=== PATIENT | male | born 1940 | race Caucasian/White ===

== ENCOUNTER 2018-07-08 09:12 | Day surgery (SDC) | payer MEDICARE, BC ==
[~2018-07-08] VITALS: Ht 177.8 cm; Wt 95.3 kg
[~2018-07-08 09:12] MED LIST: ASPI325T8 PO; ATOR20TA58 PO; CARV25TA PO; DORZ10DR7 EACHEYE; HYDR-3164 PO; HYDROmorphone 2 MG/ML VIAL IV PRN; IV RINGERS,LACTATED 1000ML 1,000 ML IV SCH; LIDOCAINE 1% PF 2 ML VIAL. ID PRN; LISI10TA2 PO; MORPHINE SULFATE 2 MG/ML VIAL. IV PRN; MULT-121 PO; OMEG1CAP38 PO; ONDANSETRON PF 4 MG/2 ML VIAL. IV PRN; PROCHLORPERAZINE 10 MG/2 ML VIAL. IV PRN; SILD20TA2 PO; fentaNYL PF VIAL 100 MCG/2 ML VIAL IV PRN
[2018-07-08] MEDS ORDERED: DEXAMETHASONE SOD PHOS 20 MG/5 ML VIAL. ONE (09:26)
[2018-07-08] MEDS ORDERED: fentaNYL PF VIAL 100 MCG/2 ML VIAL ONE (09:26)
[2018-07-08] MEDS ORDERED: ROCURONIUM 50 MG/5 ML VIAL. ONE (09:26)
[2018-07-08] MEDS ORDERED: LIDOCAINE 2% PF Vial for OR 5 ML VIAL. ONE (09:26)
[2018-07-08] MEDS ORDERED: PROPOFOL 20 ML IV ONE (09:26)
[2018-07-08] MEDS ORDERED: BUPIVAC MPF-EPI 0.5%-1:200000 30 ML VIAL. ONE (10:41)
[2018-07-08] MEDS ORDERED: ePHEDrine PF IN SALINE 50 MG/5 ML DISP.SYRIN IV ONE (11:37)
[2018-07-08] MEDS ORDERED: NEOSTIGMINE METHYLSULFATE 5 MG/5 ML SYRINGE. ONE (11:53)
[2018-07-08] MEDS ORDERED: GLYCOPYRROLATE 1 MG/5 ML VIAL. ONE (11:53)
--- NOTE | 2018-07-08 12:00 | PDOC4 ---
Operative Note Operative Note Date: 07/08/2018 Preoperative diagnosis: Bilateral inguinal hernias Postoperative diagnosis: Same Procedure: Robotic-assisted laparoscopic bilateral inguinal hernia repair with mesh Surgeon: Hadley Specimen: None Dictation: Patient is a 77-year-old male who's complained of some right groin pain a CT scan was done which showed bilateral inguinal hernias with incarcerated fat. Procedure of robotic-assisted laparoscopic bilateral inguinal hernia repair with mesh was explained to the patient detail was benefits were also discussed including bleeding infection injury to intra-abdominal contents possibly necessitating further open operations alternatives to this procedure also discussed with the patient who seemed to understand and give a verbal and written consent had the procedure performed. Patient was taken to the operating room placed in supine position general anesthesia was initiated once patient was sleeping and abated his abdomen was prepped and draped in the usual sterile fashion using ChloraPrep. The stability umbilicus was injected with quarter percent Marcaine with epinephrine incision was made with 11 blade scalpel a Veress needle was placed within the abdomen created a pneumoperitoneum once this was complete A8 millimeter da Leticia port was placed and the da Leticia camera was placed within the abdomen which was inspected and was noted that he had quite a few adhesions in the right upper quadrant from his previous cholecystectomy otherwise the pelvis was clear. A 8 mm da Leticia port was placed in the left mid abdomen and one in the right midabdomen under direct visualization da Leticia robot was brought in and docked all port sites surgeon went to the robotic console using a grasper and Endo Mack scissors the peritoneum over the right groin was taken down and the small hernia defect and its contents were reduced similarly on the left side the peritoneum was taken down and the hernia content reduced. 3-D max Bard mesh for the right and left groin were placed within the abdomen both were situated over the hernia defect and the peritoneum was then closed with a running 20V lock suture. The da Leticia robot was undocked all ports removed the pneumoperitoneum was reduced all port sites were closed for subcutaneous tissue and Monocryl Mastisol Steri-Strips and island dressings were applied. 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 ARIELLE MATTA MD Jul 08, 2018 12:00
--- NOTE | 2018-07-08 12:02 | DISCH ---
DISCHARGE INSTRUCTIONS Condition on Discharge Condition on Discharge: Stable Activity After Discharge Activity Instructions for Disc: Avoid exertion Other activity instructions: no lifting greater than 20 pounds for 2 weeks Diet after Discharge Diet after Discharge: Regular Wound Incision Care Other wound/incision instructi: May shower in 24 hours Contacting the DRBrody after DC Call your doctor for: If your condition worsens Follow-Up Follow up with: Dr. Matta in 2 weeks ARIELLE MATTA MD Jul 08, 2018 12:02
[2018-07-08] MEDS ORDERED: SEVOFLURANE 61 TO 120 MINUTES. IH ONE (12:10)
[2018-07-08] MEDS ORDERED: oxyCODONE/APAP 5/325 1 TAB TABLET PO ONE ×2 (12:45)
[2018-07-08 13:40] VITALS: BP 142/66
== END 2018-07-08 13:40 | disposition home or self-care (01) ==
LOC: SURG 09:12
PROVIDERS: ATTEND Surgery
DX: K40.20 Bilateral inguinal hernia, without obstruction or gangrene, not specified as recurrent (principal); K66.0 Peritoneal adhesions (postprocedural) (postinfection); I12.9 Hypertensive chronic kidney disease with stage 1 through stage 4 chronic kidney disease, or unspecified chronic kidney disease; N18.3 Chronic kidney disease, stage 3 (moderate); I25.2 Old myocardial infarction; E78.5 Hyperlipidemia, unspecified; I25.10 Atherosclerotic heart disease of native coronary artery without angina pectoris; I25.5 Ischemic cardiomyopathy; E66.9 Obesity, unspecified; Z90.49 Acquired absence of other specified parts of digestive tract; Z79.2 Long term (current) use of antibiotics; Z79.82 Long term (current) use of aspirin; Z79.899 Other long term (current) drug therapy; Z95.5 Presence of coronary angioplasty implant and graft; M19.90 Unspecified osteoarthritis, unspecified site; Z68.30 Body mass index [BMI] 30.0-30.9, adult; Z95.810 Presence of automatic (implantable) cardiac defibrillator; Z87.891 Personal history of nicotine dependence; Z72.89 Other problems related to lifestyle
CPT/HCPCS: 49650; A7015; C1781; J0690; J1100; J2001; J2704; J2710; J3010; J3490

== ENCOUNTER 2019-07-27 11:17 | Emergency (ER) | payer MEDICARE, BC ==
[~2019-07-27] VITALS: Ht 172.7 cm; Wt 84.8 kg
[~2019-07-27 11:17] MED LIST changes: +AMIO200T4 PO; +HYDR-2761 PO; -HYDROmorphone 2 MG/ML VIAL IV PRN; -IV RINGERS,LACTATED 1000ML 1,000 ML IV SCH; -LIDOCAINE 1% PF 2 ML VIAL. ID PRN; +MEXI150C PO; -MORPHINE SULFATE 2 MG/ML VIAL. IV PRN; +NITR0.4T22 SL; -ONDANSETRON PF 4 MG/2 ML VIAL. IV PRN; -PROCHLORPERAZINE 10 MG/2 ML VIAL. IV PRN; +UBID200C27 PO; -fentaNYL PF VIAL 100 MCG/2 ML VIAL IV PRN
[2019-07-27] MEDS: IV NORMAL SALINE 1000ML BAG 1,000 ML IV ONE (11:51)
[2019-07-27 11:59] LABS: BASO # 0.1 x10^3/uL (0.0-0.2); BASO % 1 % (0-3); EOS # 0.1 x10^3/uL (0.0-0.7); EOS % 1 % (0-3); HEMATOCRIT 36.8 % (39.0-53.0); HEMOGLOBIN 12.5 g/dL (13.0-17.5); LYMPH # 1.2 x10^3/uL (1.0-4.8); LYMPH % 10 % (24-48); MEAN CORPUSCULAR HEMOGLOBIN 33 pg (25-35); MEAN CORPUSCULAR HGB CONC 34 g/dL (31-37); MEAN CORPUSCULAR VOLUME 96 fL (79-100); MONO % 8 % (0-9); NEUT % 81 % (31-73); PLATELET COUNT 192 x10^3/uL (140-400); RED BLOOD COUNT 3.85 x10^6/uL (4.30-5.70); RED CELL DISTRIBUTION WIDTH 14.5 % (11.5-14.5); WHITE BLOOD COUNT 12.4 x10^3/uL (4.0-11.0)
[2019-07-27 12:05] LABS: CALCIUM 8.3 mg/dL (8.5-10.1); CREATININE 1.7 mg/dL (0.7-1.3); POTASSIUM 4.2 mmol/L (3.5-5.1)
[2019-07-27] MEDS: AMIODARONE 150 MG in IV DEXTROSE 5% 100ML 100 ML IV ONE (12:09)
--- NOTE | 2019-07-27 12:09 | RAD ---
PORTABLE CHEST 1V History: Syncopal episode COMPARISON: 07/14/2019 FINDINGS: The cardiomediastinal silhouette is stable. No evidence of pneumothorax. No pleural effusion. Pacemaker identified. No evidence of consolidating infiltrate. Improvement in previously seen left basilar opacity and improvement in interstitial opacities. Small dense nodule in the right lung, stable, likely a small granuloma. IMPRESSION: Improved aeration of both lungs. No new consolidating infiltrate. Electronically signed by: Filemon Noriega MD (07/27/2019 12:06 PM) [facility]
[2019-07-27 12:10] LABS: ALBUMIN 2.8 g/dL (3.4-5.0); ALBUMIN/GLOBULIN RATIO 0.7 (1.0-1.7); MAGNESIUM 1.9 mg/dL (1.8-2.4); TOTAL BILIRUBIN 0.6 mg/dL (0.2-1.0)
[2019-07-27] MEDS: AMIODARONE 450 MG in IV DEXTROSE 5% 250 ML IV PRN (12:10)
[2019-07-27 12:19] LABS: CREATINE KINASE 57 U/L (39-308)
[2019-07-27 12:20] LABS: PROTHROMBIN TIME PATIENT 14.2 SEC (11.7-14.0)
[2019-07-27] MEDS: NOREPINEPHRINE VIAL 8 MG in IV DEXTROSE 5% 250 ML IV ONE (12:49)
--- NOTE | 2019-07-27 13:07 | PHYS DOC ---
Past Medical History Past Medical History: Arrhythmia, High Cholesterol, Hypertension Additional Past Surgical Histo: DEFIBRILATOR Smoking: Quit Greater Than 1 Year Alcohol Use: None Drug Use: None Adult General Chief Complaint Chief Complaint: SYNCOPE HPI HPI Patient is an 78 year old male with past medical history of heart arrhythmias who presents today after a syncopal episode and an irregular heart rhythm. The patient was here one week ago with very similar symptoms on 07/14/[address] [facility] for adjustment of his pacemaker/defibrillator and was increased in his amiodarone dosage. Today the patient was at [employer] when he began to feel lightheaded and his "vision went white" while standing and subsequently fainted. Family members helped him down to the ground. Denies LOC or head trauma. Patient denies headache or neck pain. The patient is scheduled for an ablation procedure next Thursday. He currently has no chest pain, shortness of breath, dizziness, or nausea/vomiting. Denies fever/chills. Review of Systems Review of Systems Constitutional: Denies fever or chills Eyes: Denies redness or eye pain; reports vision changes HENT: Denies nasal congestion or sore throat Respiratory: Denies cough or shortness of breath Cardiovascular: Denies chest pain; reports palpitations and syncopal episode GI: Denies abdominal pain, nausea, or vomiting : Denies dysuria or hematuria Musculoskeletal: Denies back pain or joint pain Integument: Denies rash or skin lesions Neurologic: Denies headache, focal weakness or sensory changes; reports di zziness/lightheadedness and syncopal episode Complete systems were reviewed and found to be within normal limits, except as documented in this note. Current Medications Current Medications Current Medications Medications (Trade) Dose Ordered Sig/Shaggy Start Time Stop Time Status Last Admin Dose Admin Amiodarone HCl 150 mg/Dextrose 103 ml @ 400 mls/hr 1X ONCE 07/27/19 11:30 07/27/19 11:45 DC 07/27/19 12:09 400 MLS/HR Amiodarone HCl 450 mg/Dextrose 259 ml @ 0 mls/hr CONT PRN 07/27/19 11:30 07/27/19 12:10 33 MLS/HR Norepinephrine Bitartrate 8 mg/ Dextrose 258 ml @ 16.413 mls/ hr 1X ONCE 07/27/19 12:45 07/28/19 04:28 07/27/19 12:49 9.375 MLS/HR Ondansetron HCl (Zofran) 4 mg 1X ONCE 07/27/19 15:15 07/27/19 15:16 DC 07/27/19 15:18 4 MG Sodium Chloride 1,000 ml @ 1,000 mls/hr 1X ONCE 07/27/19 11:45 07/27/19 12:44 DC 07/27/19 11:51 1,000 MLS/HR Allergies Allergies Allergies Coded Allergies Type Severity Reaction Last Updated Verified No Known Drug Allergies 07/08/18 No Physical Exam Physical Exam Constitutional: 78yo male in no acute distress. HENT: Normocephalic, atraumatic, oropharynx moist Eyes: PERRL, EOMI, conjunctiva normal, no discharge Neck: Normal range of motion, no midline tenderness, supple Cardiovascular: Tachycardic, regular rhythm Lungs & Thorax: Bilateral breath sounds clear to auscultation, no wheezing, no respiratory distress Abdomen: Soft, no tenderness Skin: Warm, dry, no erythema, no rash, pallor noted Extremities: No tenderness, ROM intact, no edema Neurologic: Alert and oriented X 3, normal motor function, normal sensory function, no focal deficits noted Psychologic: Affect normal, judgement normal Current Patient Data Vital Signs Vital Signs Date Time Temp Pulse Resp B/P (MAP) Pulse Ox O2 Delivery O2 Flow Rate FiO2 07/27/19 15:21 136 20 96/72 (80) 97 Room Air 07/27/19 11:17 79.5 79.5 Lab Values Laboratory Tests Test 07/27/19 11:40 White Blood Count 12.4 x10^3/uL (4.0-11.0) H Red Blood Count 3.85 x10^6/uL (4.30-5.70) L Hemoglobin 12.5 g/dL (13.0-17.5) L Hematocrit 36.8 % (39.0-53.0) L Mean Corpuscular Volume 96 fL (79-100) Mean Corpuscular Hemoglobin 33 pg (25-35) Mean Corpuscular Hemoglobin Concent 34 g/dL (31-37) Red Cell Distribution Width 14.5 % (11.5-14.5) Platelet Count 192 x10^3/uL (140-400) Neutrophils (%) (Auto) 81 % (31-73) H Lymphocytes (%) (Auto) 10 % (24-48) L Monocytes (%) (Auto) 8 % (0-9) Eosinophils (%) (Auto) 1 % (0-3) Basophils (%) (Auto) 1 % (0-3) Neutrophils # (Auto) 10.0 x10^3/uL (1.8-7.7) H Lymphocytes # (Auto) 1.2 x10^3/uL (1.0-4.8) Monocytes # (Auto) 1.0 x10^3/uL (0.0-1.1) Eosinophils # (Auto) 0.1 x10^3/uL (0.0-0.7) Basophils # (Auto) 0.1 x10^3/uL (0.0-0.2) Prothrombin Time 14.2 SEC (11.7-14.0) H Prothrombin Time INR 1.1 (0.8-1.1) Activated Partial Thromboplast Time 32 SEC (24-38) Sodium Level 140 mmol/L (136-145) Potassium Level 4.2 mmol/L (3.5-5.1) Chloride Level 104 mmol/L (98-107) Carbon Dioxide Level 26 mmol/L (21-32) Anion Gap 10 (6-14) Blood Urea Nitrogen 21 mg/dL (8-26) Creatinine 1.7 mg/dL (0.7-1.3) H Estimated GFR (Cockcroft-Gault) 39.0 BUN/Creatinine Ratio 12 (6-20) Glucose Level 138 mg/dL (70-99) H Calcium Level 8.3 mg/dL (8.5-10.1) L Magnesium Level 1.9 mg/dL (1.8-2.4) Total Bilirubin 0.6 mg/dL (0.2-1.0) Aspartate Amino Transferase (AST) 127 U/L (15-37) H Alanine Aminotransferase (ALT) 80 U/L (16-63) H Alkaline Phosphatase 340 U/L (46-116) H Creatine Kinase 57 U/L (39-308) Creatine Kinase MB (Mass) 1.7 ng/mL (0.0-3.6) Creatine Kinase MB Relative Index % (0-4) Troponin I Quantitative 0.068 ng/mL (0.000-0.055) JK-Ahy-I-Type Natriuretic Peptide 6505 pg/mL (0-449) H Total Protein 7.0 g/dL (6.4-8.2) Albumin 2.8 g/dL (3.4-5.0) L Albumin/Globulin Ratio 0.7 (1.0-1.7) L Laboratory Tests 07/27/19 11:40 Laboratory Tests 07/27/19 11:40 EKG EKG 07/27/2019 @11:25 showed Sustained V-Tach at 136bpm. Radiology/Procedures Radiology/Procedures PROCEDURE: PORTABLE CHEST 1V PORTABLE CHEST 1V History: Syncopal episode COMPARISON: 07/14/2019 FINDINGS: The cardiomediastinal silhouette is stable. No evidence of pneumothorax. No pleural effusion. Pacemaker identified. No evidence of consolidating infiltrate. Improvement in previously seen left basilar opacity and improvement in interstitial opacities. Small dense nodule in the right lung, stable, likely a small granuloma. IMPRESSION: Improved aeration of both lungs. No new consolidating infiltrate. Electronically signed by: Filemon Noriega MD (07/27/2019 12:06 PM) [facility] PROCEDURE: CHEST AP ONLY CHEST AP ONLY 07/27/2019 2:26 PM INDICATION: Left IJ central line placement. COMPARISON: 07/27/2019 TECHNIQUE: Portable frontal view of the chest is provided. FINDINGS: The cardiomediastinal silhouette is similar in appearance. Left chest wall cardiac device is present. Median sternotomy changes are noted. Left IJ central venous catheter is identified with the distal tip projecting over the expected region of the left brachiocephalic vein. Lungs are otherwise clear. There are no significant pleural effusions. There is no pulmonary vascular congestion. No pneumothorax. IMPRESSION: Left IJ central venous catheter is identified with the distal tip projecting over the expected region of the left brachiocephalic vein. Electronically signed by: Humera Garcia MD (07/27/2019 3:07 PM) [facility] Course & Med Decision Making Course & Med Decision Making Patient is an 78-year-old male with past medical history of heart arrhythmias presents to the emergency department today with after syncopal episode and an elevated heart rate. The patient was found to be sustained ventricular tachycardia but was maintaining pressures in the 90/70 range initially. Troponin was found to be elevated at 0.068ng/mL. The patient was administered amiodarone bolus and gtt.. Blood pressures decreased steadily throughout his emergency department stay, prompting Levophed administration. A central line was placed in his left Internal Jugular vein to continue Levophed administration. Discussed case with Dr. Bazzi (cardiology). Dr. Bazzi in agreement with current management and recommends transfer to [facility] for electrophysiology management and consultation with probable need for more urgent cardio-ablasion. Discussed with [facility] transfer line. Patient was transferred to [facility] for continuity of care. Dr. Eric Mccormick is the accepting physician. Dragon Disclaimer Dragon Disclaimer This electronic medical record was generated, in whole or in part, using a voice recognition dictation system. Departure Departure Impression: Primary Impression: Sustained SVT Additional Impressions: Hypotension Elevated troponin Disposition: TRANSFER OTHER ([facility]- Dr. Eric Monte) Condition: GUARDED Referrals: ALEXI YANEZ (PCP) Central Line Central Line : Central Line Lumen: triple Central Line Procedure: sterile drapes applied, sterile dressing applied Central Line Postion: internal jugular (L) Anesthesia: Lidocaine cc's of anesthesia: 3 Complications: none Central Line Post Position: sutured, good blood return, position confirmed w/ CXR Progress Written consent obtained. Time out performed. Hand hygiene utilized. Wound cleaned with ChloraPrep. Anesthesia obtained via a 25-gauge hypodermic needle with (3) mL's of lidocaine 1%. Bedside Ultrasound utilized with good visualization of left IJ. Line placed over wire via Seldinger technique. Good flow and blood return. Secured in place with sutures and sterile dressing. Patient tolerated procedure well and without difficulty. Chest XR confirmed good positioning without signs of pneumothorax. Critical Care Time Critical care time was 30 minutes which includes time at bedside, spent in discussion of patient's care with specialists and/or family members, with interpretation of laboratory and/or radiological studies and is exclusive of procedures. Problem Qualifiers Additional Impressions: Hypotension Hypotension type: unspecified hypotension type Qualified Codes: I95.9 - Hypotension, unspecified FILEMON MOYA DO Jul 27, 2019 13:07
--- NOTE | 2019-07-27 15:10 | RAD ---
CHEST AP ONLY 07/27/2019 2:26 PM INDICATION: Left IJ central line placement. COMPARISON: 07/27/2019 TECHNIQUE: Portable frontal view of the chest is provided. FINDINGS: The cardiomediastinal silhouette is similar in appearance. Left chest wall cardiac device is present. Median sternotomy changes are noted. Left IJ central venous catheter is identified with the distal tip projecting over the expected region of the left brachiocephalic vein. Lungs are otherwise clear. There are no significant pleural effusions. There is no pulmonary vascular congestion. No pneumothorax. IMPRESSION: Left IJ central venous catheter is identified with the distal tip projecting over the expected region of the left brachiocephalic vein. Electronically signed by: Humera Garcia MD (07/27/2019 3:07 PM) [facility]
[2019-07-27] MEDS: ONDANSETRON PF 4 MG/2 ML VIAL. IVP ONE (15:18)
[2019-07-27 16:01] VITALS: BP 110/76
--- NOTE | 2019-07-28 06:03 | EKG ---
[facility] [address] [place] [address] Test Date: 2019-07-27 Test Time: 11:25:43 Pat Name: LUKASZ VILLALOBOS Department: Room: Gender: M Senior Network Engineer: : [id number] Requested By: BEBE SAEZ Order Number: [id number] Reading MD: Measurements Intervals [place] Rate: 136 P: -72 NM: 74 QRS: -88 QRSD: 238 T: 139 QT: 338 QTc: 512 Interpretive Statements SUPRAVENTRICULAR TACHYCARDIA ABNORMAL LEFT AXIS DEVIATION NON SPECIFIC INTRAVENTRICULAR BLOCK QRS(T) CONTOUR ABNORMALITY CONSISTENT WITH ANTERIOR INFARCT POSSIBLY RECENT CONSISTENT WITH INFEROLATERAL INFARCT POSSIBLY RECENT ABNORMAL ECG No previous ECG available for comparison
== END 2019-07-27 16:09 | disposition short-term general hospital (02) ==
LOC: ER 11:17
DX: I47.1 Supraventricular tachycardia (principal); I95.9 Hypotension, unspecified; R79.89 Other specified abnormal findings of blood chemistry; E78.00 Pure hypercholesterolemia, unspecified; I10 Essential (primary) hypertension; Z87.891 Personal history of nicotine dependence
CPT/HCPCS: 36415; 36556; 71045; 80053; 82553; 83735; 83880; 84484; 85025; 85610; 85730; 93005; 96365; 96366; 96367; 96375; 99285; J0282; J2405; J7030